=== PATIENT | male | born 1955 | race Caucasian/White ===

== ENCOUNTER 2018-05-26 12:17 | Emergency (ER) | payer MEDICAID, OTHER ==
[~2018-05-26] VITALS: Ht 185.4 cm; Wt 96.6 kg
[2018-05-26 12:57] VITALS: BP 155/86
--- NOTE | 2018-05-26 14:23 | NUR ---
PT AMBULATED TO ER BED 11
--- NOTE | 2018-05-26 14:35 | NUR ---
PATIENT PRESENTS TO ED WITH C/O FREQUENCY, URGENCY, AND HESITANCY X 3 DAYS DENIES DISCHARGE BURNING PAIN UPON VOIDING DENIES N/V/D; SKIN IS PINK/WARM/DRY; AAOX4 WITH EVEN AND STEADY GAIT; LUNGS CLEAR BL; HR EVEN AND REGULAR; PT DENIES ANY FEVER, CP, SOB, OR COUGH AT THIS TIME; PATIENT STATES PAIN OF 6/10 AT THIS TIME; VSS; PATIENT POSITIONED FOR COMFORT; HOB ELEVATED; BEDRAILS UP X2; BED DOWN. ER MD MADE AWARE OF PT STATUS.
[2018-05-26 15:13] LABS: BILIRUBIN,URINE NEGATIVE (NEGATIVE); BLOOD, URINE NEGATIVE (NEGATIVE); COLOR,URINE YELLOW (YELLOW); LEUKOCYTE ESTERASE ,URINE 1+ (NEGATIVE); NITRITE, URINE NEGATIVE (NEGATIVE); UGLUCOSE NEGATIVE (NEGATIVE)
[2018-05-26] MEDS ORDERED: cefTRIAXone 1,000 MG in LIDOCAINE 1% ***ER ONLY *** 2.1 ML IM ONE (15:20)
[2018-05-26] MEDS ORDERED: LEVOFLOXACIN 500 MG TAB PO ONE (15:20)
[2018-05-26] MEDS ORDERED: KETOROLAC 60 MG/2 ML VIAL IM ONE (15:20)
[2018-05-26 15:24] LABS: APPEARANCE,URINE HAZY (CLEAR)
[2018-05-26] MEDS ORDERED: cefTRIAXone 1,000 MG VIAL ONE (15:37)
[2018-05-26 15:38] LABS: RBC,URINE 0-5 /HPF (0-5); WBC,URINE 16-25 (MOD) /HPF (0-5)
[2018-05-26] MEDS ORDERED: LIDOCAINE MPF 1% 5mL VIAL ONE (15:39)
[2018-05-26 16:24] VITALS: BP 134/78
--- NOTE | 2018-05-26 16:25 | NUR ---
Patient discharged with v/s stable. Written and verbal after care instructions given and explained. Patient alert, oriented and verbalized understanding of instructions. Ambulatory with steady gait. All questions addressed prior to discharge. ID band removed. Patient advised to follow up with PMD. Rx of LEVAQUIN/VIAGRA given. Patient educated on indication of medication including possible reaction and side effects. Opportunity to ask questions provided and answered.
== END 2018-05-26 16:25 | disposition home or self-care (01) ==
LOC: MED 12:17
DX: N39.0 Urinary tract infection, site not specified (principal); N52.9 Male erectile dysfunction, unspecified; R39.15 Urgency of urination; R30.0 Dysuria; R35.0 Frequency of micturition
CPT/HCPCS: 81001; 87086; 96372; 99283; J0696; J1885; J2001

== ENCOUNTER 2018-08-01 12:19 | Emergency (ER) | payer SELFPAY ==
[~2018-08-01] VITALS: Ht 185.4 cm; Wt 90.5 kg
[2018-08-01 12:21] VITALS: BP 170/93
--- NOTE | 2018-08-01 12:36 | NUR ---
PT AMB AT BED 6
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
--- NOTE | 2018-08-01 12:56 | NUR ---
DR GODOY AT BEDSIDE FOR EVALUATION
[2018-08-01 13:15] LABS: APPEARANCE,URINE CLEAR (CLEAR); BILIRUBIN,URINE 1+ (NEGATIVE); BLOOD, URINE NEGATIVE (NEGATIVE); COLOR,URINE YELLOW (YELLOW); LEUKOCYTE ESTERASE ,URINE NEGATIVE (NEGATIVE); NITRITE, URINE NEGATIVE (NEGATIVE); PH,URINE >=9.0 (5.0-9.0); UGLUCOSE NEGATIVE (NEGATIVE)
[2018-08-01 13:35] LABS: RBC,URINE 0-5 /HPF (0-5); WBC,URINE 0-5 /HPF (0-5)
[2018-08-01] MEDS ORDERED: AZITHROMYCIN 250 MG TAB PO ONE (13:40)
[2018-08-01] MEDS ORDERED: cefTRIAXone 250 MG in LIDOCAINE MPF 1% - 5 mL VIAL 0.9 ML IM ONE (13:40)
[2018-08-01 15:00] VITALS: BP 142/66
--- NOTE | 2018-08-01 15:00 | NUR ---
Patient discharged with v/s stable. Written and verbal after care instructions given and explained. Patient verbalized understanding. Ambulatory with steady gait. All questions addressed prior to discharge. Advised to follow up with PMD.
[2018-08-05 06:13] LABS: CHLAMYDIA TRACHOMATIS AMP DNA Negative (Negative)
== END 2018-08-01 15:00 | disposition home or self-care (01) ==
LOC: MED 12:19
DX: N34.2 Other urethritis (principal); I10 Essential (primary) hypertension; M79.89 Other specified soft tissue disorders
CPT/HCPCS: 36415; 81001; 96372; 99283; J0696; J2001; 87491

== ENCOUNTER 2020-08-25 12:37 | Emergency (ER) | payer MEDICAID ==
[~2020-08-25] VITALS: Ht 185.4 cm; Wt 86.2 kg
[2020-08-25 12:39] VITALS: BP 115/76
--- NOTE | 2020-08-25 12:46 | NUR ---
Patient ambulated with steady gait to bed 9.
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
[2020-08-25] MEDS ORDERED: KETOROLAC 30 MG/ML VIAL IM ONE (13:10)
[2020-08-25] MEDS ORDERED: AMOX1TAB8 PO (13:45)
[2020-08-25] MEDS ORDERED: BACI1PAC6 TP (13:45)
[2020-08-25] MEDS ORDERED: ACET-8386 PO (13:45)
[2020-08-25] MEDS ORDERED: BACITRACIN OINT 500 UNITS/GM PKT TP ONE ×2 (13:55→14:05)
--- NOTE | 2020-08-25 14:10 | NUR ---
Patient discharged with v/s stable. Written and verbal after care instructions about animal bite, laceration care given and explained. Patient alert, oriented and verbalized understanding of instructions. Ambulatory with steady gait. All questions addressed prior to discharge. ID band removed. Patient advised to follow up with PMD. Rx of norco, amox-clav, bacitracin given. Patient educated on indication of medication including possible reaction and side effects. Opportunity to ask questions provided and answered.
[2020-08-25 14:14] VITALS: BP 115/76
== END 2020-08-25 14:10 | disposition home or self-care (01) ==
LOC: MED 12:37
DX: S61.451A Open bite of right hand, initial encounter (principal); S61.452A Open bite of left hand, initial encounter; S61.412A Laceration without foreign body of left hand, initial encounter; S60.511A Abrasion of right hand, initial encounter; I10 Essential (primary) hypertension; Z79.899 Other long term (current) drug therapy; W54.0XXA Bitten by dog, initial encounter; Y93.89 Activity, other specified; Y92.89 Other specified places as the place of occurrence of the external cause; Y99.8 Other external cause status
CPT/HCPCS: 90471; 90715; 96372; 99284; J1885